=== PATIENT | male | born 1995 | race African-American/Black ===

== ENCOUNTER 2023-10-19 18:40 | Inpatient (IN) | payer OTHER ==
[2023-10-19 20:49] VITALS: BMI 21.2
[2023-10-19] MEDS ORDERED: POLYETHYLENE GLYCOL (HEALTHYLAX) 3350 17 GM PACKET PO PRN (21:53)
[2023-10-19] MEDS ORDERED: MAG HYDROX/AL HYDROX/SIMETH 30 ML UNIT-DOSE CUP PO PRN (21:53)
[2023-10-19] MEDS ORDERED: IBUPROFEN 600 MG TABLET (FP) PO PRN (21:53)
[2023-10-19] MEDS ORDERED: LOPERAMIDE HCL 2 MG CAPSULE PO PRN (21:53)
[2023-10-19] MEDS ORDERED: IBUPROFEN 400 MG TABLET (FP) PO PRN (21:53)
[2023-10-19] MEDS ORDERED: ACETAMINOPHEN 325 MG TABLET (FP) PO PRN (21:53)
[2023-10-19] MEDS ORDERED: BENZOCAINE/MENTHOL (CHLORASEPTIC ) LOZENGE MM PRN (21:53)
[2023-10-19] MEDS ORDERED: NICOTINE POLACRILEX 2 MG GUM BUC PRN (21:53)
[2023-10-19] MEDS ORDERED: MAGNESIUM HYDROX 2400MG/30ML ORAL SUSPENSION 30 ML CUP PO PRN (21:53)
[2023-10-19] MEDS ORDERED: hydrOXYzine PAMOATE 25 MG CAPSULE (FP) PO PRN (21:53)
[2023-10-19] MEDS ORDERED: P-EPHED 60MG/TRIPROLIDI 2.5MG TABLET PO PRN (21:53)
[2023-10-19] MEDS ORDERED: BENZONATATE 200 MG CAPSULE PO PRN (21:53)
[2023-10-19] MEDS ORDERED: guaiFENesin 600 MG TABLET.ER (FP) PO PRN (21:53)
[2023-10-19] MEDS: THIAMINE 100 MG TABLET PO SCH (22:40)
[2023-10-19] MEDS: MELATONIN 5 MG TABLETS PO SCH (22:40)
[2023-10-20 03:25] VITALS: RESP 16
[2023-10-20 06:55] VITALS: TEMP 97.6
[2023-10-20 08:02] VITALS: BP 96/48; PULSE 52
[2023-10-20] MEDS: PRENATAL VITAMINS W/ FOLIC ACID TABLET (FP) PO SCH (09:31)
[2023-10-20] MEDS: TUBERCULIN PPD 5 TU/0.1ML SYRINGE (IN PATIENT USE ONLY) ID ONE (09:32)
[2023-10-20 12:41] LABS: HEMATOCRIT 34.2 % (35.4-49); HEMOGLOBIN 11.5 GM/dL (11.7-16.9); MCH 26.8 pg (25.7-33.7); MCHC 33.7 g/dl (32.0-35.9); MEAN CELL VOLUME 79.6 fl (80-96); PLATELET COUNT 305 10^3/uL (134-434); RDW 15.8 % (11.9-15.9); WHITE BLOOD COUNT 3.8 K/mm3 (4.0-10.0)
[2023-10-20 12:58] LABS: POTASSIUM 4.6 mmol/L (3.5-5.1)
[2023-10-20 13:02] LABS: CALCIUM 9.2 mg/dL (8.5-10.1)
[2023-10-20 13:03] LABS: ALBUMIN 3.3 g/dl (3.4-5.0); BLOOD UREA NITROGEN 10.3 mg/dL (7-18)
[2023-10-20 13:07] LABS: BILIRUBIN,TOTAL 0.6 mg/dL (0.2-1); TOT PROT 6.1 g/dl (6.4-8.2)
[2023-10-20 13:24] LABS: SYPHILIS W/ RPR CONF NON-REACTIVE (NONREACTIVE)
== END 2023-10-20 14:50 | disposition left against medical advice (07) | DRG 894 ==
LOC: YASAS 18:40 → Y3NR 22:39
PROVIDERS: ADMIT Allergy & Immunology; ATTEND Psychiatry & Neurology Pain Medicine
PROC: HZ42ZZZ Group Counseling for Substance Abuse Treatment, Cognitive-Behavioral (ICD-10-PCS; principal; 2023-10-19)
DX: F14.20 Cocaine dependence, uncomplicated (principal); F12.20 Cannabis dependence, uncomplicated; F17.210 Nicotine dependence, cigarettes, uncomplicated; F25.0 Schizoaffective disorder, bipolar type; F19.24 Other psychoactive substance dependence with psychoactive substance-induced mood disorder; R94.31 Abnormal electrocardiogram [ECG] [EKG]
CPT/HCPCS: 36415; 80053; 80305; 85027; 86780; 86803; 93005; 93010

== ENCOUNTER 2023-10-20 00:10 | Emergency (ER) | payer OTHER ==
[2023-10-20 00:26] VITALS: BP 98/58; PULSE 62; RESP 18; TEMP 98.1; BMI 21.2
== END 2023-10-20 02:00 | disposition home or self-care (01) ==
LOC: JER 00:10
DX: R00.1 Bradycardia, unspecified (principal)
CPT/HCPCS: 93005; 93010; 99283-25